=== PATIENT | female | born 1980 | race Caucasian/White ===

== ENCOUNTER 2020-06-18 15:18 | Emergency (ER) | payer BC ==
[~2020-06-18] VITALS: Ht 180.3 cm; Wt 107.0 kg
[2020-06-18 15:21] VITALS: Ht 180.3 cm; Wt 107.0 kg
[2020-06-18 16:29] LABS: microscopic required? YES; urine erythrocyte 3+ (NEGATIVE)
[2020-06-18 16:41] LABS: BASOPHIL % 0.5 % (0.2-1.3); PLATELET COUNT 277 x10^3mcL (179-408); RED CELL DISTRIBUTION WIDTH 12.4 % (12.3-17.7)
[2020-06-18 18:40] VITALS: BP 130/75
== END 2020-06-18 18:40 | disposition home or self-care (01) ==
LOC: ED 15:18
PROVIDERS: Emergency Medicine
DX: O46.91 Antepartum hemorrhage, unspecified, first trimester (principal); Z3A.12 12 weeks gestation of pregnancy
CPT/HCPCS: 87491; 87591